=== PATIENT | male | born 1955 | race African-American/Black ===

== ENCOUNTER 2018-05-21 04:12 | Emergency (ER) | payer MEDICARE, OTHER ==
--- NOTE | 2018-05-21 04:53 | XR ---
Right little finger. History laceration. Pain. Comparison none. FINDINGS: There is transverse fracture of the head of the middle phalanx of the little finger. There is 100% po sterior displacement of the distal fragment. IMPRESSION: Displaced fracture of the head of the middle phalanx of the little finger. There is some overriding o f the fragments.
[2018-05-21] MEDS ORDERED: DIPH,PERTUS(ACELL)TETVAC-LF 0.5 ML VIAL IM ONE (06:02)
[2018-05-21] MEDS ORDERED: ceFAZolin 1,000 MG VIAL IM STA (06:03)
--- NOTE | 2018-05-21 06:05 | ED ---
Wound/Laceration HPI - General Chief Complaint: Wound/Laceration Stated Complaint: Hand Injury Time Seen by Provider: 05/21/18 04:29 Source: patient Mode of arrival: ambulatory Limitations: no limitations - History of Present Illness Initial Comments: This patient is 63-year-old man who presents to be evaluated for a laceration to the palmar aspect of the right fifth digit. Patient states that he had axilla closed his finger in a car door. This was hours ago. The patient denies weakness or loss of sensation. He states that his last tetanus shot was given years ago. -: hour(s) Extremity Location: Right: Hand Place: outdoors Patient Tetanus UTD: Yes Context: accidental, crush injury Associated Symptoms: none - Related Data Home Medications Medication Instructions Recorded Confirmed Gabapentin [Neurontin] 600 mg PO TID 04/05/14 12/25/14 Loratadine [Claritin] 10 mg PO DAILY PRN 04/05/14 12/25/14 Methocarbamol [Robaxin] 750 mg PO DAILY PRN 04/05/14 12/25/14 Ibuprofen [Motrin] 800 mg PO Q8HR PRN 05/07/14 12/25/14 Atorvastatin [Lipitor] 80 mg PO HS 07/09/14 12/25/14 Nebivolol HCl [Bystolic] 20 mg PO DAILY 08/01/14 12/25/14 Bimatoprost [Lumigan .01% Ophth 1 drop BOTH EYES HS 12/25/14 12/25/14 Soln] Brimonidine Tartrate/Timolol 1 drop BOTH EYES BID 12/25/14 12/25/14 [Combigan 0.2%/0.5% Ophth Soln] Previous Rx's Medication Instructions Recorded Sulfamethoxazole/Trimethoprim 1 each PO Q12H 10 Days tab 12/14/14 [Bactrim DS 800-160 mg] Cephalexin [Keflex] 500 mg PO Q6HR #28 cap 05/21/18 Ibuprofen [Motrin] 600 mg PO Q8HR PRN #20 tab 05/21/18 Allergies Allergy/AdvReac Type Severity Reaction Status Date / Time Penicillins Allergy Unknown Verified 05/21/18 04:18 Review of Systems ROS Statement: Those systems with pertinent positive or pertinent negative responses have been documented in the HPI. ROS Other: All systems not noted in ROS Statement are negative. Constitutional: Denies: weakness Respiratory: Denies: cough, dyspnea Cardiovascular: Denies: chest pain, palpitations Musculoskeletal: Reports: as per HPI, joint swelling, arthralgia Skin: Denies: rash Neurological: Denies: weakness, numbness Hematological/Lymphatic: Denies: easy bleeding Past Medical History Past Medical History: Eye Disorder, Hypertension Additional Past Medical History / Comment(s): glaucoma History of Any Multi-Drug Resistant Organisms: None Reported Past Surgical History: Orthopedic Surgery Additional Past Surgical History / Comment(s): RIGHT ROTATOR CUFF SURGERY 2008 LEFT KNEE BONE SPUR SX 2007 Past Anesthesia/Blood Transfusion Reactions: No Reported Reaction Past Psychological History: No Psychological Hx Reported Smoking Status: Current every day smoker Past Alcohol Use History: Daily Past Drug Use History: Marijuana General Exam Limitations: no limitations General appearance: alert, in no apparent distress Right Forearm Wrist exam: Present: normal inspection, full ROM. Absent: tenderness, swelling, laceration, deformity Hand Wrist exam: Present: full ROM, tenderness, swelling, laceration (There is an approximately 4-5 cm laceration to the palmar aspect he right fifth digit over the middle phalanx). Absent: abrasion, ecchymosis, deformity, crepitus, dislocation, erythema, amputation, nail avulsion, subungual hematoma Neuro motor exam: Present: thumb opposition intact Neurosensory exam: Present: 2-point discrimination, radial nerve intact, ulnar nerve intact, median nerve intact Vascular: Present: normal capillary refill Neurological exam: Present: alert. Absent: motor sensory deficit Course Vital Signs 05/21/18 05/21/18 04:15 06:40 Temperature 98.0 F 97.2 F L Pulse Rate 78 85 Respiratory 17 20 Rate Blood Pressure 128/86 131/80 O2 Sat by Pulse 97 98 Oximetry Procedures - Laceration Laceration #1 Consent Obtained: verbal consent Indication: laceration Site: hand Description: linear Depth: simple, single layer Anesthetic Used: lidocaine 1% Anesthesia Technique: local infiltration Pre-repair: irrigated extensively Type of Sutures: nylon Size of Sutures: 5-0 Number of Sutures: 5 Technique: simple, interrupted Patient Tolerated Procedure: well, no complications Medical Decision Making - Medical Decision Making Patient is 63-year-old man with a laceration to the right fifth digit. There is also fracture. Discussed admission to be seen by orthopedics given that this is technically open fracture, patient declines. He states [facility] has [facility] and has seen Dr. Benedict off for, and then he will follow there. We discussed that if there is any difficulty at all with the plan he must return immediately. Patient does understand there is significant risk of complication with this injury. Disposition Clinical Impression: Laceration, Phalanx, hand fracture, open Disposition: HOME SELF-CARE Condition: Good Instructions: Care For Your Stitches (ED), Finger Fracture (ED) Prescriptions: Cephalexin [Keflex] 500 mg PO Q6HR #28 cap Ibuprofen [Motrin] 600 mg PO Q8HR PRN #20 tab PRN Reason: Pain Is patient prescribed a controlled substance at d/c from ED?: No Referrals: Paulo Rosa DO [Primary Care Provider] - 1-2 days Jack Rosales DO [Doctor of Osteopathic Medicine] - 1-2 days
[2018-05-21 06:42] VITALS: BP 131/80; PULSE 85; RESP 20; TEMP 97.2
== END 2018-05-21 06:49 | disposition home or self-care (01) ==
LOC: EC 04:12
DX: S62.626B Displaced fracture of middle phalanx of right little finger, initial encounter for open fracture (principal); S61.216A Laceration without foreign body of right little finger without damage to nail, initial encounter; I10 Essential (primary) hypertension; F17.200 Nicotine dependence, unspecified, uncomplicated; Z23 Encounter for immunization; Z79.899 Other long term (current) drug therapy; Z88.0 Allergy status to penicillin; W23.1XXA Caught, crushed, jammed, or pinched between stationary objects, initial encounter; Y93.89 Activity, other specified
CPT/HCPCS: 73140; 90715; 99283; 12002; 90471; 96372; J0690

== ENCOUNTER → 2018-08-23 | Outpatient (CLI) | payer MEDICARE, OTHER ==
--- NOTE | 2018-08-23 12:33 | MR ---
EXAMINATION TYPE: MR shoulder RT wo con DATE OF EXAM: 08/23/2018 COMPARISON: None HISTORY: Right shoulder pain TECHNIQUE: Multiplanar, multisequence imaging of the right shoulder is performed without contrast. FINDINGS: Rotator Cuff: There is increased signal involving the very distal margin of the infraspinatus tendon along the undersurface measuring 8 x 7 mm compatible with a partial undersurface tear. No retraction. Supraspinatus tendon is mild thinning. Irregularity suggesting tendinosis. At the insertion there is a 3 mm partial tear with no retraction. Scapularis tendon intact. Acromioclavicular Joint: There is arthropathy of the AC joint with hypertrophic changes. There does a ppear to be impression upon the rotator cuff tendon suggestive of impingement. Glenohumeral Joint: No joint effusion. Inferior glenohumeral ligament intact. Labrum: There is an abnormal appearance to the superior labrum suggestive of a SLAP tear. Biceps Tendon: The long head of biceps is in normal location within bicipital groove. Increased fluid surrounding the tendon suggesting tendinosis. Bone marrow signal: No focal abnormal marrow signal is appreciated. Other: There is an area of abnormal signal along the anterior margin of the scapula a degree of artif act which could be related to a small area of metallic artifact. Bony ossicle or soft tissue ossifica tion in the differential diagnosis correlate with x-ray. IMPRESSION: 1. There is a 8 x 7 mm partial undersurface tear distal margin infraspinatus tendon with no through t hickness tear or retraction. 2. Tendinopathy with impingement supraspinatus tendon. There is a 3 mm partial tear at the insertion. No retraction. 3. Abnormal morphology to the superior labrum suspicious for a superior labral tear SLAP lesion suspe cted. 4. bicipital tendinosis
== END | disposition home or self-care (01) ==
LOC: RADMRIMAIN 11:37
PROVIDERS: ATTEND Family Medicine
DX: S46.011A Strain of muscle(s) and tendon(s) of the rotator cuff of right shoulder, initial encounter (principal); M25.811 Other specified joint disorders, right shoulder; M75.21 Bicipital tendinitis, right shoulder

== ENCOUNTER → 2019-07-13 | Outpatient (CLI) | payer MEDICARE, OTHER ==
--- NOTE | 2019-07-13 14:36 | XR ---
EXAMINATION TYPE: XR chest 2V DATE OF EXAM: 07/13/2019 COMPARISON: None INDICATION: R09.89 TECHNIQUE: Frontal and lateral views of the chest are obtained. FINDINGS: The heart size is normal. The pulmonary vasculature is normal. The lungs are clear. IMPRESSION: 1. No acute pulmonary process.
== END | disposition home or self-care (01) ==
LOC: RADXRMAIN 12:12
PROVIDERS: ATTEND Family Medicine
DX: R09.89 Other specified symptoms and signs involving the circulatory and respiratory systems (principal)
CPT/HCPCS: 71046

== ENCOUNTER → 2025-02-14 | Outpatient (CLI) | payer MEDICARE ==
--- NOTE | 2025-02-14 12:52 | CTL ---
EXAMINATION TYPE: CT Low Dose Lung DATE OF EXAM ORDERED: 02/14/2025 COMPARISON: Chest radiograph 07/13/2019 CLINICAL INDICATION: Male, 69 years old with history of F17.210 nicotine dependence; PHH, Current smo ker, 1/2 PPD x50yrs., Lung cancer screening, History of Smoking/tobacco use. TECHNIQUE: Low dose computed tomography scan was performed through the chest at 1 mm thick sections a nd reconstructed images in multiple planes at 1 mm and [address] DLP: 81.[address] CTDI: 2.3 mGy Automated exposure control for dose reduction was used. CT DIAGNOSTIC QUALITY: Satisfactory FINDINGS: Nodules: Couple of left lower lobe calcified granulomas. No clinically significant pulmonary nodules. LUNGS: COPD: Severity: Mild Fibrosis: Severity: None Lymph nodes: No adenopathy. Left hilar calcified granulomas. Other findings: Mild bilateral lower lobe dependent subsegmental atelectasis. RIGHT PLEURAL SPACE: Effusion: None Calcification: None Thickening: None Pneumothorax: None LEFT PLEURAL SPACE: Effusion: None Calcification: None Thickening: None Pneumothorax: None HEART: Heart Size: Mildly Enlarged Coronary Calcification: None Pericardial Effusion: None OTHER FINDINGS: Upper abdomen: None Bony thorax: [facility] of the lower thoracic spine. Degenerative changes with anterior spurring at the ofelia rnomanubrial joint. Supraclavicular region: None Other: Bilateral gynecomastia. Ascending thoracic aortic aneurysm measuring up to 4.0 cm. IMPRESSION: 1. No clinically significant pulmonary nodules. 2. Sequelae of prior granulomatous disease. 3. Ascending thoracic aortic aneurysm measuring up to 4.[address] LUNG RAD AND CT CHEST RECOMMENDATION: Lung-Rad 2 Benign Appearance or Behavior: Continue annual sc reening with LDCT in 12 months. S Modifier (other clinically significant findings): None [facility], , 02/14/2025 12:49 PM
== END | disposition home or self-care (01) ==
LOC: RADCTMAIN 11:26
PROVIDERS: ATTEND Family Medicine
DX: Z12.2 Encounter for screening for malignant neoplasm of respiratory organs (principal); F17.210 Nicotine dependence, cigarettes, uncomplicated; I71.21 Aneurysm of the ascending aorta, without rupture
CPT/HCPCS: 71271